=== PATIENT | female | born 1940 | race Caucasian/White ===

== ENCOUNTER 2017-10-10 11:19 | Emergency (ER) | payer MEDICARE, OTHER ==
[2017-10-10] MEDS ORDERED: BISACODYL 10 MG SUPP.RECT RC ONE (12:07)
[2017-10-10 12:24] LABS: BASOPHILS % (AUTO) 0.6 % (0.0-5.0); EOSINOPHILS % (AUTO) 1.1 % (0.0-8.0); LYMPHOCYTES % (AUTO) 39.8 % (21.0-51.0); MEAN CORPUSCULAR HEMOGLOBIN 29.9 pg (27.0-33.0); MEAN CORPUSCULAR HGB CONC 33.6 g/dL (32.0-36.0); MEAN CORPUSCULAR VOLUME 89.2 fL (79-99); MONOCYTES % (AUTO) 15.9 % (3.0-13.0); NEUTROPHILS % (AUTO) 42.6 % (40.0-77.0); NUCLEATED RED BLOOD CELLS 0.1 % (0.0-0.19); PLATELET COUNT (AUTO) 276 K/uL (130-400); RED BLOOD CELL COUNT(AUTO) 4.26 MIL/uL (4.00-5.50); RED CELL DISTRIBUTION WIDTH 14.7 % (11.0-15.5); WHITE BLOOD COUNT (AUTO) 7.4 K/uL (4.8-10.8)
[2017-10-10 12:38] LABS: CREATININE 0.9 mg/dL (0.5-1.5)
[2017-10-10 12:40] LABS: INR 1.69 (0.85-1.15); PARTIAL THROMBOPLASTIN TIME 37.4 SEC (26.3-35.5); PROTHROMBIN TIME 17.6 SEC (9.6-11.6)
== END 2017-10-10 19:09 | disposition home or self-care (01) ==
LOC: EDH 11:19
DX: K59.00 Constipation, unspecified (principal); I10 Essential (primary) hypertension; Z88.1 Allergy status to other antibiotic agents
CPT/HCPCS: 36415; 74000; 74176; 80048; 85025; 85610; 85730